=== PATIENT | female | born 1985 | race Caucasian/White ===

== ENCOUNTER 2018-07-06 07:19 | Emergency (ER) | payer BC ==
[2018-07-06 07:34] VITALS: BP 120/83
[2018-07-06] MEDS ORDERED: diphenhydrAMINE 50 MG/ML SDV IVPUSH ONE (07:34)
[2018-07-06] MEDS ORDERED: Prochlorperazine 10 MG/2 ML SDV IVPUSH ONE (07:34)
[2018-07-06] MEDS ORDERED: Sodium Chloride 0.9% 10 ML Syringe FLUSH PRN (07:34)
[2018-07-06] MEDS ORDERED: Ketorolac 30 MG/ML SDV IVPUSH ONE (07:35)
--- NOTE | 2018-07-06 08:37 | EDM.PDOC ---
ED HPI GENERAL MEDICAL PROBLEM - General Chief Complaint: Headache Stated Complaint: HEADACHE Time Seen by Provider: 07/06/18 07:27 Source of Information: Reports: Patient History Limitations: Reports: No Limitations - History of Present Illness INITIAL COMMENTS - FREE TEXT/NARRATIVE: The patient presents with a migraine headache for 3 days. She has nausea and vomiting and photophobia. She has a history of migraines but this one is bad. She has no numbness or weakness. She has no fever, chills, cough, chest pain, or abdominal pain. Onset: Gradual Duration: Day(s): (3) Location: Reports: Head Quality: Reports: Sharp Severity: Severe Improves with: Reports: None Worsens with: Reports: None Associated Symptoms: Reports: Headaches, Nausea/Vomiting. 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: Musculoskeletal History: Reports: Back Pain, Chronic Neurological History: Reports: None Psychiatric History: Reports: None Endocrine/Metabolic History: Reports: None - Past Surgical History GI Surgical History: Reports: Appendectomy Social & Family History - Family History Family Medical History: Noncontributory Cardiac: Reports: Hypertension Respiratory: Reports: None - Tobacco Use Smoking Status *Q: Never Smoker - Caffeine Use Caffeine Use: Reports: Coffee, Soda - Recreational Drug Use Recreational Drug Use: No ED ROS GENERAL - Review of Systems Review Of Systems: See Below Constitutional: Reports: No Symptoms HEENT: Reports: No Symptoms Respiratory: Reports: No Symptoms Cardiovascular: Reports: No Symptoms Endocrine: Reports: No Symptoms GI/Abdominal: Reports: Nausea, Vomiting. Denies: Abdominal Pain : Reports: No Symptoms Musculoskeletal: Reports: No Symptoms Neurological: Reports: Headache - Physical Exam Exam: See Below Exam Limited By: No Limitations General Appearance: Alert, No Apparent Distress Ears: Normal External Exam Nose: Normal Inspection Head Exam: Atraumatic, Normocephalic Neck: Normal Inspection Respiratory/Chest: No Respiratory Distress, Lungs Clear, Normal Breath Sounds Cardiovascular: Regular Rate, Rhythm, No Edema, No Murmur GI/Abdominal: Soft, Non-Tender, No Organomegaly, No Mass Neuro Exam (Abbreviated): Alert, Oriented, No Motor/Sensory Deficits Course - Vital Signs Last Recorded V/S: Last Vital Signs Temp 98.4 F 07/06/18 07:31 Pulse 94 07/06/18 07:31 Resp 13 07/06/18 07:31 BP 120/83 07/06/18 07:31 Pulse Ox 100 07/06/18 07:31 - Orders/Labs/Meds Orders: Active Orders 24 hr Category Date Time Status Peripheral IV Care [RC] . DIRECTED Care 07/06/18 07:34 Active Sodium Chloride 0.9% [Saline Flush] Med 07/06/18 07:34 Active 10 ml FLUSH ASDIRECTED PRN Peripheral IV Insertion Adult [OM.PC] Routine Oth 07/06/18 07:34 Ordered Medication Orders Sodium Chloride (Saline Flush) 10 ml FLUSH ASDIRECTED PRN PRN Reason: Keep Vein Open Last Admin: 07/06/18 08:18 Dose: 10 ml Meds: Medications Generic Name Dose Route Start Last Admin Trade Name Freq PRN Reason Stop Dose Admin Sodium Chloride 10 ml 07/06/18 07:34 07/06/18 08:18 Saline Flush FLUSH 10 ml ASDIRECTED PRN Administration Keep Vein Open Discontinued Medications Generic Name Dose Route Start Last Admin Trade Name Freq PRN Reason Stop Dose Admin Diphenhydramine HCl 50 mg 07/06/18 07:34 07/06/18 08:15 Benadryl IVPUSH 07/06/18 07:35 50 mg ONETIME ONE Administration Ketorolac Tromethamine 30 mg 07/06/18 07:35 07/06/18 08:16 Toradol IVPUSH 07/06/18 07:36 30 mg ONETIME ONE Administration Prochlorperazine Edisylate 10 mg 07/06/18 07:34 07/06/18 08:16 Compazine IVPUSH 07/06/18 07:35 10 mg ONETIME ONE Administration - Re-Assessments/Exams Free Text/Narrative Re-Assessment/Exam: 07/06/18 08:37 I ordered an IV saline lock, compazine 10mg IV, benadryl 50mg IV, and toradol 30mg IV. 07/06/18 08:39 She feels better. I will discharge her home so she can get some rest. Departure - Departure Time of Disposition: 08:40 Disposition: Home, Self-Care 01 Condition: Good Clinical Impression: Migraine - Discharge Information *PRESCRIPTION DRUG MONITORING PROGRAM REVIEWED*: No *COPY OF PRESCRIPTION DRUG MONITORING REPORT IN PATIENT MALACHI: No Referrals: PCP,None [Primary Care Provider] - Forms: ED Department Discharge Additional Instructions: Go home and rest in a dark quiet room. Please return if your are worse. - My Orders Last 24 Hours: My Active Orders 07/06/18 07:34 Peripheral IV Care [RC] . DIRECTED Sodium Chloride 0.9% [Saline Flush] 10 ml FLUSH ASDIRECTED PRN Peripheral IV Insertion Adult [OM.PC] Routine - Assessment/Plan Last 24 Hours: My Active Orders 07/06/18 07:34 Peripheral IV Care [RC] . DIRECTED Sodium Chloride 0.9% [Saline Flush] 10 ml FLUSH ASDIRECTED PRN Peripheral IV Insertion Adult [OM.PC] Routine
== END 2018-07-06 08:50 | disposition home or self-care (01) ==
LOC: JD.ED 07:19
DX: G43.909 Migraine, unspecified, not intractable, without status migrainosus (principal)
CPT/HCPCS: 96374; 96375; 99283; J0780; J1200; J1885; J7050

== ENCOUNTER 2020-04-19 02:42 | Emergency (ER) | payer BC ==
[2020-04-19 02:54] VITALS: BP 124/85; PULSE 76
[2020-04-19] MEDS ORDERED: HYDROmorphone 0.5 MG/0.5 ML Syringe IVPUSH ONE ×3 (03:09→05:08)
[2020-04-19] MEDS ORDERED: Ondansetron 4 MG/2 ML SDV IVPUSH ONE ×2 (03:09→05:07)
--- NOTE | 2020-04-19 03:13 | EDM.PDOC ---
ED HPI GENERAL MEDICAL PROBLEM - General Chief Complaint: Abdominal Pain Stated Complaint: ABDOMINAL PAIN Time Seen by Provider: 04/19/20 02:56 Source of Information: Reports: Patient History Limitations: Reports: No Limitations - History of Present Illness INITIAL COMMENTS - FREE TEXT/NARRATIVE: This is a 34-year-old female. She had onset of right upper quadrant pain around midnight. She did take some Maalox but there was no relief and she vomited after that and she has had nausea and increased pain since that time. The pain starts in the right lower quadrant radiates around into her back. She does have a history of gallbladder attacks in the past but she has never had any studies. She denies any fever or chills she denies any other acute symptoms. She last ate around 7 PM last night. Right Upper Abdomen Pain Score (Numeric/FACES): 8 - Related Data Allergies Allergy/AdvReac Type Severity Reaction Status Date / Time No Known Allergies Allergy Verified 04/19/20 02:54 Home Meds: Home Meds Acetaminophen/oxyCODONE [Percocet 325-5 MG] 1 each PO Q6H PRN #15 tab 04/19/20 [Rx] Ondansetron [Zofran ODT] 4 mg PO Q6H PRN #15 tab.dis 04/19/20 [Rx] Topiramate [Topamax] 150 mg PO BEDTIME 04/19/20 [History] buPROPion HCL [Wellbutrin Xl] 300 mg PO DAILY 04/19/20 [History] Past Medical History HEENT History: Reports: None Cardiovascular History: Reports: None Respiratory History: Reports: None Gastrointestinal History: Reports: GERD Genitourinary History: Reports: 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: Musculoskeletal History: Reports: Back Pain, Chronic Neurological History: Reports: Migraines Psychiatric History: Reports: None Endocrine/Metabolic History: Reports: None - Past Surgical History GI Surgical History: Reports: Appendectomy Female Surgical History: Reports: Other (See Below) Other Female Surgeries/Procedures: ovarian cysts Social & Family History - Family History Family Medical History: Noncontributory Cardiac: Reports: Hypertension Respiratory: Reports: None - Tobacco Use Smoking Status *Q: Never Smoker - Caffeine Use Caffeine Use: Reports: Coffee, Soda - Recreational Drug Use Recreational Drug Use: No ED ROS GENERAL - Review of Systems Review Of Systems: See Below Constitutional: Denies: Fever, Chills HEENT: Reports: No Symptoms Respiratory: Reports: No Symptoms Cardiovascular: Reports: No Symptoms Endocrine: Reports: No Symptoms GI/Abdominal: Reports: Abdominal Pain, Nausea, Vomiting : Reports: No Symptoms Musculoskeletal: Reports: No Symptoms Skin: Reports: No Symptoms Neurological: Reports: No Symptoms Psychiatric: Reports: No Symptoms Hematologic/Lymphatic: Reports: No Symptoms ED EXAM, GI/ABD - Physical Exam Exam: See Below Exam Limited By: No Limitations General Appearance: Alert, WD/WN, Mild Distress Eyes: Bilateral: Normal Appearance Ears: Normal External Exam Nose: Normal Inspection Throat/Mouth: Normal Inspection, Normal Lips, Normal Voice, No Airway Compromise Head: Normocephalic Neck: Supple Respiratory/Chest: No Respiratory Distress, Lungs Clear, Normal Breath Sounds Cardiovascular: Regular Rate, Rhythm, No Murmur GI/Abdominal Exam: Soft, Other (Sounds are decreased, she is very tender in the right upper quadrant with a positive Morrison's, her lower abdomen is nontender on palpation her left upper quadrant is nontender) Back Exam: Full Range of Motion Extremities: Normal Inspection, Normal Range of Motion Neurological: Alert, Oriented Psychiatric: Normal Affect, Normal Mood Skin Exam: Warm, Dry Course - Vital Signs Last Recorded V/S: Last Vital Signs Temp 98.6 F 04/19/20 02:52 Pulse 76 04/19/20 02:52 Resp 16 04/19/20 02:52 BP 124/85 04/19/20 02:52 Pulse Ox 100 04/19/20 02:52 - Orders/Labs/Meds Orders: Active Orders 24 hr Category Date Time Status Abdomen Ltd [US] Stat Exams 04/19/20 03:10 Taken HYDROmorphone [Dilaudid] Med 04/19/20 05:08 Once 0.5 mg IVPUSH ONETIME ONE Ondansetron [Zofran] Med 04/19/20 05:07 Once 4 mg IVPUSH ONETIME ONE Labs: Laboratory Tests 04/19/20 04/19/20 Range/Units 03:04 03:04 WBC 5.85 (3.98-10.04) K/mm3 RBC 4.27 (3.98-5.22) M/mm3 Hgb 13.1 D (11.2-15.7) gm/dl Hct 39.7 (34.1-44.9) % MCV 93.0 (79.4-94.8) fl MCH 30.7 (25.6-32.2) pg MCHC 33.0 (32.2-35.5) g/dl RDW Std Deviation 42.6 (36.4-46.3) fL Plt Count 216 (182-369) K/mm3 MPV 9.2 L (9.4-12.3) fl Neut % (Auto) 55.3 (34.0-71.1) % Lymph % (Auto) 33.2 (19.3-51.7) % [place] % (Auto) 7.4 (4.7-12.5) % Eos % (Auto) 3.4 (0.7-5.8) Baso % (Auto) 0.5 (0.1-1.2) % Neut # (Auto) 3.24 (1.56-6.13) K/mm3 Lymph # (Auto) 1.94 (1.18-3.74) K/mm3 [place] # (Auto) 0.43 H (0.24-0.36) K/mm3 Eos # (Auto) 0.20 (0.04-0.36) K/mm3 Baso # (Auto) 0.03 (0.01-0.08) K/mm3 Sodium 139 (136-145) mEq/L Potassium 3.8 (3.5-5.1) mEq/L Chloride 103 (98-107) mEq/L Carbon Dioxide 27 (21-32) mEq/L Anion Gap 12.8 (5-15) BUN 11 (7-18) mg/dL Creatinine 1.0 (0.55-1.02) mg/dL Est Cr Clr Drug Dosing 83.08 mL/min Estimated GFR (MDRD) > 60 (>60) mL/min BUN/Creatinine Ratio 11.0 L (14-18) Glucose 91 (74-106) mg/dL Calcium 8.8 (8.5-10.1) mg/dL Total Bilirubin 0.2 (0.2-1.0) mg/dL AST 17 (15-37) U/L ALT 24 (14-59) U/L Alkaline Phosphatase 64 (46-116) U/L Total Protein 7.8 (6.4-8.2) g/dl Albumin 3.5 (3.4-5.0) g/dl Globulin 4.3 gm/dL Albumin/Globulin Ratio 0.8 L (1-2) Lipase 123 (73-393) U/L Meds: Medications Discontinued Medications Generic Name Dose Route Start Last Admin Trade Name Freq PRN Reason Stop Dose Admin Hydromorphone HCl 0.5 mg 04/19/20 03:09 04/19/20 03:17 Dilaudid IVPUSH 04/19/20 03:10 0.5 mg ONETIME ONE Administration Hydromorphone HCl 0.5 mg 04/19/20 03:46 04/19/20 03:51 Dilaudid IVPUSH 04/19/20 03:47 0.5 mg ONETIME ONE Administration Ondansetron HCl 4 mg 04/19/20 03:09 04/19/20 03:17 Zofran IVPUSH 04/19/20 03:10 4 mg ONETIME ONE Administration - Radiology Interpretation Free Text/Narrative:: Utrasound showed layering gallstones there is no wall thickening or biliary distention there is a positive Morrison sign. - Re-Assessments/Exams Free Text/Narrative Re-Assessment/Exam: 04/19/20 05:09 Spoke to the patient regarding her ultrasound report with the gallstones but no evidence with her blood work of white count of 5 and no elevation of her liver enzymes or lipase she does not have cholecystitis. She is still hurting some I will provide some additional medication medication at home. She wants to follow-up with Dr. Patterson for evaluation and possible gallbladder removal. Departure - Departure Time of Disposition: 05:10 Disposition: Home, Self-Care 01 Condition: Fair Clinical Impression: Gallbladder colic, Left upper quadrant pain, Nausea Cholelithiasis Qualifiers: Cholelithiasis location: gallbladder Cholecystitis presence: without cho lecystitis Biliary obstruction: without biliary obstruction Qualified Code(s): K80.20 - Calculus of gallbladder without cholecystitis without obstruction - Discharge Information *PRESCRIPTION DRUG MONITORING PROGRAM REVIEWED*: No *COPY OF PRESCRIPTION DRUG MONITORING REPORT IN PATIENT MALACHI: No Prescriptions: Acetaminophen/oxyCODONE [Percocet 325-5 MG] 1 each PO Q6H PRN #15 tab PRN Reason: Pain Ondansetron [Zofran ODT] 4 mg PO Q6H PRN #15 tab.dis PRN Reason: Nausea Instructions: Cholelithiasis, Gallbladder Eating Plan Referrals: Neelam Gutierres, CARIN [Primary Care Provider] - Scotty Patterson MD [Physician] - Forms: ED Department Discharge Additional Instructions: Take the medicine for pain and nausea as needed, if the medicines are not helpin g at home then return to the ER, if you develop a fever greater than 101 return to the ER, follow-up with Dr. Patterson for evaluation and possible gallbladder removal, return to the ER if needed Sepsis Event Note (ED) - Evaluation Sepsis Screening Result: No Definite Risk - Focused Exam Vital Signs: Vital Signs Temp Pulse Resp BP Pulse Ox 04/19/20 02:52 98.6 F 76 16 124/85 100 - My Orders Last 24 Hours: My Active Orders 04/19/20 03:10 Abdomen Ltd [US] Stat 04/19/20 05:07 Ondansetron [Zofran] 4 mg IVPUSH ONETIME ONE 04/19/20 05:08 HYDROmorphone [Dilaudid] 0.5 mg IVPUSH ONETIME ONE - Assessment/Plan Last 24 Hours: My Active Orders 04/19/20 03:10 Abdomen Ltd [US] Stat 04/19/20 05:07 Ondansetron [Zofran] 4 mg IVPUSH ONETIME ONE 04/19/20 05:08 HYDROmorphone [Dilaudid] 0.5 mg IVPUSH ONETIME ONE
--- NOTE | 2020-04-21 09:49 | US ---
Limited abdominal ultrasound: Multiple real-time images of the upper right abdomen were obtained. Comparison: No prior abdominal imaging is available. Liver contains no focal parenchymal abnormality. Multiple shadowing gallstones are seen within the gallbladder. No gallbladder wall thickening or biliary duct dilatation is appreciated. Visualized pancreas appears within normal limits. Right kidney shows no hydronephrosis is or mass and has a length of 11.1 cm. Impression: 1. Multiple gallstones. No gallbladder wall thickening or biliary duct dilatation is seen. 2. Other portions of the right upper quadrant abdominal ultrasound are unremarkable. Diagnostic code #3 This report was dictated in MDT I agree with preliminary report from [facility], finalized on 04/19/20, 5:38 AM Central Daylight Time
== END 2020-04-19 05:45 | disposition home or self-care (01) ==
LOC: JD.ED 02:42
DX: K80.20 Calculus of gallbladder without cholecystitis without obstruction (principal); G43.909 Migraine, unspecified, not intractable, without status migrainosus; Z90.49 Acquired absence of other specified parts of digestive tract; Z79.899 Other long term (current) drug therapy
CPT/HCPCS: 36415; 76705; 80053; 83690; 85025; 96374; 96375; 96376; 99284; J1170; J2405

== ENCOUNTER 2020-04-22 07:52 | Day surgery (SDC) | payer BC ==
--- NOTE | 2020-04-22 07:31 | PCM.PREANE ---
Preanesthetic Assessment - Procedure Proposed Procedure: lap assisted vaginal hysterectomy - Anesthesia/Transfusion/Family Hx Anesthesia History: Prior Anesthesia Without Reaction Family History of Anesthesia Reaction: No Transfusion History: No Prior Transfusion(s) - Review of Systems General: No Symptoms Pulmonary: No Symptoms Cardiovascular: Dyspnea on Exertion Gastrointestinal: No Symptoms Neurological: No Symptoms Other: Reports: Easy Bleeding, Easy Bruising, Diabetes (118 this am), Depression (in winter) - Physical Assessment NPO Status Date: 04/21/20 NPO Status Time: 00:00 Height: 1.6 m Weight: 72.62 kg ASA Class: 3 Mental Status: Alert & Oriented x3 Airway Class: Mallampati = 2 Dentition: Reports: [place](s), Implants (front top) Thyro-Mental Finger Breadths: 2 Mouth Opening Finger Breadths: 2 ROM/Head Extension: Limited/Partial Lungs: Clear to Auscultation, Normal Respiratory Effort Cardiovascular: Regular Rate, Regular Rhythm, Murmurs - Lab Values: on chart WNL - Imaging/EKG Impressions: EKG SR rate 56 - Allergies Allergies/Adverse Reactions: Allergies Allergy/AdvReac Type Severity Reaction Status Date / Time No Known Allergies Allergy Verified 04/21/20 16:21 - Blood Blood Available: Yes Product(s) Available: PRBC - Anesthesia Plan Pre-Op Medication Ordered: None - Acknowledgements Anesthesia Type Planned: General Anesthesia Pt an Appropriate Candidate for the Planned Anesthesia: Yes Alternatives and Risks of Anesthesia Discussed w Pt/Guardian: Yes Pt/Guardian Understands and Agrees with Anesthesia Plan: Yes PreAnesthesia Questionnaire HEENT History: Reports: Impaired Vision, Other (See Below) Other HEENT History: wears glasses Cardiovascular History: Reports: None Respiratory History: Reports: None Gastrointestinal History: Reports: GERD Genitourinary History: Reports: None 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: Musculoskeletal History: Reports: Back Pain, Chronic Neurological History: Reports: Migraines Psychiatric History: Reports: None Endocrine/Metabolic History: Reports: None Hematologic History: Reports: None Immunologic History: Reports: None Oncologic (Cancer) History: Reports: None Dermatologic History: Reports: None - Past Surgical History Head Surgeries/Procedures: Reports: None HEENT Surgical History: Reports: Tonsillectomy Cardiovascular Surgical History: Reports: None Respiratory Surgical History: Reports: None GI Surgical History: Reports: Appendectomy Female Surgical History: Reports: Other (See Below) Other Female Surgeries/Procedures: ovarian cysts Endocrine Surgical History: Reports: None Neurological Surgical History: Reports: None Musculoskeletal Surgical History: Reports: None Oncologic Surgical History: Reports: None Dermatological Surgical History: Reports: None - SUBSTANCE USE Smoking Status *Q: Never Smoker Tobacco Use Within Last Twelve Months: No Second Hand Smoke Exposure: No Days Per Week of Alcohol Use: 0 Number of Drinks Per Day: 0 Total Drinks Per Week: 0 Recreational Drug Use History: No - HOME MEDS Home Medications: Home Meds Acetaminophen/oxyCODONE [Percocet 325-5 MG] 1 each PO Q6H PRN #15 tab 04/19/20 [Rx] Ondansetron [Zofran ODT] 4 mg PO Q6H PRN #15 tab.dis 04/19/20 [Rx] Topiramate [Topamax] 150 mg PO BEDTIME 04/19/20 [History] buPROPion HCL [Wellbutrin Xl] 300 mg PO DAILY 04/19/20 [History] - CURRENT (IN HOUSE) MEDS Current Meds: Current Medications Lactated Ringer's (Ringers, Lactated) 1,000 mls @ 125 mls/hr IV ASDIRECTED DINA Stop: 04/22/20 23:00 Lidocaine/Sodium Bicarbonate (Buffered Lidocaine 1% In Ns 8.4%) 0.25 ml IDERM ONETIME PRN PRN Reason: Prior to IV Start Stop: 04/22/20 18:00 Sodium Chloride (Saline Flush) 10 ml FLUSH ASDIRECTED PRN PRN Reason: Keep Vein Open Stop: 04/22/20 18:00
[~2020-04-22 07:52] MED LIST: Lidocaine 1%/Sod Bicarbonate in NS 8.4% 1 ML Syringe IDERM PRN; Sodium Chloride 0.9% 10 ML Syringe FLUSH PRN
[2020-04-22] MEDS: Lactated Ringers 1,000 ML IV SCH ×2 (08:15→11:30)
[2020-04-22] MEDS ORDERED: Scopolamine 1.5 MG Transdermal Patch TOP SCH (08:16)
[2020-04-22] MEDS ORDERED: Rocuronium 50 MG/5 ML Vial ONE (09:15)
[2020-04-22] MEDS ORDERED: Succinylcholine/Sod PF 100 MG/5 ML SYRINGE IV ONE (09:16)
[2020-04-22] MEDS ORDERED: Midazolam 1 MG/ML 2 ML SDV ONE ×2 (09:16→09:28)
[2020-04-22] MEDS ORDERED: Lidocaine 1% 4 ML ONE (09:16)
[2020-04-22] MEDS ORDERED: Propofol 200 MG/20 ML SDV ONE (09:16)
[2020-04-22] MEDS ORDERED: fentaNYL 250 MCG/5 ML SDV ONE (09:16)
[2020-04-22] MEDS ORDERED: Ondansetron 4 MG/2 ML SDV ONE (09:41)
[2020-04-22] MEDS ORDERED: ePHEDrine Sulfate/0.9% NaCl/Pf 25 MG/5 ML SYRINGE IV ONE (09:43)
[2020-04-22] MEDS: Bupivacaine 0.5%/EPINEPHrine 1:200,000 50 ML MDV ONE ×2 (09:46→09:56)
[2020-04-22] MEDS ORDERED: fentaNYL 100 MCG/2 ML SDV IVPUSH PRN (10:02)
[2020-04-22] MEDS ORDERED: HYDROmorphone 0.5 MG/0.5 ML Syringe IVPUSH PRN (10:02)
[2020-04-22] MEDS ORDERED: HYDROmorphone 0.5 MG/0.5 ML Syringe ONE (10:04)
[2020-04-22] MEDS ORDERED: Lactated Ringers 1,000 ML ONE (10:08)
--- NOTE | 2020-04-22 10:38 | PCM.PREANE ---
Preanesthetic Assessment - Anesthesia/Transfusion/Family Hx Anesthesia History: Prior Anesthesia Without Reaction Family History of Anesthesia Reaction: No Transfusion History: No Prior Transfusion(s) - Review of Systems General: No Symptoms Pulmonary: No Symptoms Cardiovascular: No Symptoms Gastrointestinal: No Symptoms Neurological: No Symptoms Other: Reports: None - Physical Assessment NPO Status Date: 04/21/20 NPO Status Time: 20:30 Vital Signs: Last Vital Signs Temp 98.3 F 04/22/20 07:55 Pulse 64 04/22/20 07:55 Resp 16 04/22/20 07:55 BP 108/69 04/22/20 07:55 Pulse Ox 98 04/22/20 07:55 Height: 1.75 m Weight: 68.946 kg ASA Class: 1 Airway Class: Mallampati = 1 Dentition: Reports: Normal Dentition, [place](s) Thyro-Mental Finger Breadths: 3 Mouth Opening Finger Breadths: 3 ROM/Head Extension: Full Lungs: Clear to Auscultation, Normal Respiratory Effort Cardiovascular: Regular Rate, Regular Rhythm - Lab Values: Laboratory Last Values Urine HCG, Qual Negative (NEGATIVE) 04/22/20 07:50 - Allergies Allergies/Adverse Reactions: Allergies Allergy/AdvReac Type Severity Reaction Status Date / Time No Known Allergies Allergy Verified 04/21/20 16:21 - Blood Blood Available: Yes Product(s) Available: PRBC - Acknowledgements Anesthesia Type Planned: General Anesthesia Pt an Appropriate Candidate for the Planned Anesthesia: Yes Alternatives and Risks of Anesthesia Discussed w Pt/Guardian: Yes Pt/Guardian Understands and Agrees with Anesthesia Plan: Yes PreAnesthesia Questionnaire HEENT History: Reports: Impaired Vision, Other (See Below) Other HEENT History: wears glasses Cardiovascular History: Reports: None Respiratory History: Reports: None Gastrointestinal History: Reports: GERD Genitourinary History: Reports: None 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: Musculoskeletal History: Reports: Back Pain, Chronic Neurological History: Reports: Migraines Psychiatric History: Reports: None Endocrine/Metabolic History: Reports: None Hematologic History: Reports: None Immunologic History: Reports: None Oncologic (Cancer) History: Reports: None Dermatologic History: Reports: None - Past Surgical History Head Surgeries/Procedures: Reports: None HEENT Surgical History: Reports: Tonsillectomy Cardiovascular Surgical History: Reports: None Respiratory Surgical History: Reports: None GI Surgical History: Reports: Appendectomy Female Surgical History: Reports: Other (See Below) Other Female Surgeries/Procedures: ovarian cysts Endocrine Surgical History: Reports: None Neurological Surgical History: Reports: None Musculoskeletal Surgical History: Reports: None Oncologic Surgical History: Reports: None Dermatological Surgical History: Reports: None - SUBSTANCE USE Smoking Status *Q: Never Smoker Tobacco Use Within Last Twelve Months: No Second Hand Smoke Exposure: No Days Per Week of Alcohol Use: 0 Number of Drinks Per Day: 0 Total Drinks Per Week: 0 Recreational Drug Use History: No - HOME MEDS Home Medications: Home Meds Acetaminophen/oxyCODONE [Percocet 325-5 MG] 1 each PO Q6H PRN #15 tab 04/19/20 [Rx] Ondansetron [Zofran ODT] 4 mg PO Q6H PRN #15 tab.dis 04/19/20 [Rx] Topiramate [Topamax] 150 mg PO BEDTIME 04/19/20 [History] buPROPion HCL [Wellbutrin Xl] 300 mg PO DAILY 04/19/20 [History] - CURRENT (IN HOUSE) MEDS Current Meds: Current Medications Fentanyl (Sublimaze) 100 mcg IVPUSH Q5M PRN PRN Reason: Pain Stop: 04/22/20 14:00 Hydromorphone HCl (Dilaudid) 0.5 mg IVPUSH Q10M PRN PRN Reason: Pain (severe 7-10) Stop: 04/22/20 14:00 Lactated Ringer's (Ringers, Lactated) 1,000 mls @ 125 mls/hr IV ASDIRECTED DINA Stop: 04/22/20 23:00 Last Admin: 04/22/20 08:15 Dose: 125 mls/hr Documented by: Lidocaine/Sodium Bicarbonate (Buffered Lidocaine 1% In Ns 8.4%) 0.25 ml IDERM ONETIME PRN PRN Reason: Prior to IV Start Stop: 04/22/20 18:00 Last Admin: 04/22/20 08:15 Dose: 0.25 ml Documented by: Scopolamine (Transderm-Scop) 1.5 mg TOP ONETIME DINA Stop: 04/22/20 16:00 Last Admin: 04/22/20 08:23 Dose: 1.5 mg Documented by: Sodium Chloride (Saline Flush) 10 ml FLUSH ASDIRECTED PRN PRN Reason: Keep Vein Open Stop: 04/22/20 18:00 Discontinued Medications Bupivacaine HCl/Epinephrine Bitart (Marcaine 0.5%/Epinephrine 1:200,000) Confirm Administered Dose 50 ml .ROUTE .STK-MED ONE Stop: 04/22/20 08:39 Last Admin: 04/22/20 09:56 Dose: 50 ml Documented by: Ephedrine Sulfate (Ephedrine 25 Mg/5 Ml Syringe) Confirm Administered Dose 25 mg IV .STK-MED ONE Stop: 04/22/20 09:44 Fentanyl (Sublimaze) Confirm Administered Dose 250 mcg .ROUTE .STK-MED ONE Stop: 04/22/20 09:17 Hydromorphone HCl (Dilaudid) Confirm Administered Dose 0.5 mg .ROUTE .STK-MED ONE Stop: 04/22/20 10:05 Lidocaine HCl (Xylocaine-Mpf 1%) Confirm Administered Dose 4 mls @ as directed .ROUTE .STK-MED ONE Stop: 04/22/20 09:17 Lactated Ringer's (Ringers, Lactated) Confirm Administered Dose 1,000 mls @ as directed .ROUTE .STK-MED ONE Stop: 04/22/20 10:09 Midazolam HCl (Versed 1 Mg/Ml) Confirm Administered Dose 2 mg .ROUTE .STK-MED ONE Stop: 04/22/20 09:17 Midazolam HCl (Versed 1 Mg/Ml) Confirm Administered Dose 2 mg .ROUTE .STK-MED ONE Stop: 04/22/20 09:29 Ondansetron HCl (Zofran) Confirm Administered Dose 8 mg .ROUTE .STK-MED ONE Stop: 04/22/20 09:42 Propofol (Diprivan 20 Ml) Confirm Administered Dose 200 mg .ROUTE .STK-MED ONE Stop: 04/22/20 09:17 Rocuronium [place] (Zemuron) Confirm Administered Dose 50 mg .ROUTE .STK-MED ONE Stop: 04/22/20 09:16
--- NOTE | 2020-04-22 11:05 | PCM.POSTAN ---
POST ANESTHESIA ASSESSMENT - MENTAL STATUS Mental Status: Somnolent - VITAL SIGNS Vital Signs: Last Vital Signs Temp 97.7 F 04/22/20 10:52 Pulse 87 04/22/20 10:52 Resp 12 04/22/20 10:52 BP 131/84 04/22/20 10:52 Pulse Ox 100 04/22/20 10:52 - RESPIRATORY Respiratory Status: Respiratory Rate WNL, Airway Patent, O2 Saturation Stable, Supplemental Oxygen - CARDIOVASCULAR CV Status: Pulse Rate WNL, Blood Pressure Stable - GASTROINTESTINAL GI Status: No Symptoms - PAIN Pain Score: 0 - POST OP HYDRATION Hydration Status: Adequate & Stable
[2020-04-22] MEDS ORDERED: Prochlorperazine 10 MG/2 ML SDV IVPUSH PRN (11:07)
--- NOTE | 2020-04-22 11:07 | PCM.PRNOTE ---
- Free Text/Narrative Note: Operative Report Operation: laparoscopic cholecystectomy Date: 04/22/2020 Attending Surgeon: Scotty Patterson MD Indication for Surgery: acute cholecystitis Preoperative antibiotics: 2 g Ancef IV VTE prophylaxis: SCDs Estimated Blood Loss: 5 cc Findings: mildly inflamed gallbladder with moderate sized gallstones. Critical view of safety established. Detailed Report: The patient underwent general endotracheal anesthesia after being placed supine on the operating table and initial timeout. The abdomen was prepped and draped in sterile fashion. A pre-incision timeout was performed confirming the patients identity and the operation to be performed. A Veress needle was inserted into the abdominal cavity below the left costal margin along the mid- clavicular line. The abdomen was insufflated with CO2 to 15 mm Hg. Gas was aspirated below the umbilicus with a syringe in order to ensure safe placement of a 5 mm bladed laparoscopic port. The 5mm 30 degree laparoscope was then inserted and viscera inspected. The gallbladder appeared mildly inflamed with thickening. Two additional 5 mm ports were placed along the right subcostal region under direct vision with the laparoscope, and a 12 mm port was placed at the subxiphoid region. The gallbladder was grasped at the fundus with a locking grasper and retracted anteriorly and superiorly, exposing the infundibulum. This was grasped with the surgeons left hand grasper and retracted laterally. The hook electrode was used to open the overlying peritoneum, and this plane of dissection was developed along the edges of the gallbladder at its interface with the liver bed. A combination of hook electrode, blunt dissection with the suction offset machine operator and laparoscopic Kittner dissector, and the [place] grasper were used to carefully expose and skeletonize the cystic duct and artery. A critical view of safety was obtained. Hemolock clips were then placed on both structures. The duct and artery were transected with laparoscopic scissors between the hemolock clips. The hook was then used to dissect the gallbladder free from its attachment to the liver. The specimen was then placed in an Endocatch bag and removed through the subxiphoid port. The liver bed was inspected and appeared hemostatic. The larger subxiphoid port was closed at the level of the fascia with vicryl suture using the PMI laparoscopic suture passer. Pneumoperitoneum was then released. All skin incisions were then closed with placement of subcuticular vicryl suture and dressed with dermabond. A total of 30 cc 0.5% marcaine with epinephrine was used for local anesthesia at the incision sites. The patient tolerated the operation well, was extubated in the operating room and transferred to the PACU for routine post-anesthesia care. Scotty Patterson MD
[2020-04-22] MEDS ORDERED: Dexamethasone 4 MG/ML 5 ML MDV ONE (11:14)
[2020-04-22] MEDS ORDERED: Ketorolac 30 MG/ML SDV IVPUSH SCH (12:28)
[2020-04-22 13:05] VITALS: BP 103/63; PULSE 81
--- NOTE | 2020-04-22 13:08 | PCM48HPAN ---
Post Anesthesia Note - EVALUATION WITHIN 48HRS OF ANESTHETIC Vital Signs in Normal Range: Yes Patient Participated in Evaluation: Yes Respiratory Function Stable: Yes Airway Patent: Yes Cardiovascular Function Stable: Yes Hydration Status Stable: Yes Pain Control Satisfactory: Yes Nausea and Vomiting Control Satisfactory: Yes Mental Status Recovered: Yes Vital Signs: Last Vital Signs Temp 36.6 C 04/22/20 11:52 Pulse 81 04/22/20 13:04 Resp 16 04/22/20 13:04 BP 103/63 04/22/20 13:04 Pulse Ox 97 04/22/20 13:04 - COMMENTS/OBSERVATIONS Free Text/Narrative:: no anesthesia complications noted
== END 2020-04-22 13:30 | disposition home or self-care (01) ==
LOC: JD.SDS 07:52
PROVIDERS: ATTEND Surgery
DX: K80.12 Calculus of gallbladder with acute and chronic cholecystitis without obstruction (principal)
CPT/HCPCS: 47562; 81025; A9270; J0171; J0330; J0780; J1100; J1170; J1885; J2001; J2250; J2405; J2704; J3010; J3490; J7120